=== PATIENT | female | born 1945 | race Caucasian/White ===

== ENCOUNTER 2017-11-27 18:09 | Emergency (ER) | payer MEDICARE, BC ==
[~2017-11-27] VITALS: Ht 160 cm; Wt 73.0 kg
[~2017-11-27 18:09] MED LIST: AMOXICILLIN875 MG OR; AUGMENTIN875TAB PO; CRESTOR10 MG PO; FLONASE NASAL50 MCG; MUCINEX600 MG PO; VITAMIN D400 UNI1 PO
[2017-11-27] MEDS ORDERED: MAGNESIUM400 M1 PO (18:23)
[2017-11-27 19:30] VITALS: BP 145/73
== END 2017-11-27 19:30 | disposition home or self-care (01) ==
LOC: ED 18:09
PROC: 0HQFXZZ Repair Right Hand Skin, External Approach (ICD-10-PCS; principal; 2017-11-27)
DX: S61.210A Laceration without foreign body of right index finger without damage to nail, initial encounter (principal); E78.5 Hyperlipidemia, unspecified; W45.8XXA Other foreign body or object entering through skin, initial encounter; Y93.G1 Activity, food preparation and clean up; Y92.000 Kitchen of unspecified non-institutional (private) residence as the place of occurrence of the external cause

== ENCOUNTER 2018-08-02 17:56 | Emergency (ER) | payer MEDICARE, BC ==
[~2018-08-02] VITALS: Ht 160 cm; Wt 68.0 kg
[~2018-08-02 17:56] MED LIST changes: +MAGNESIUM400 M1 PO
[2018-08-02 20:02] LABS: HEMATOCRIT 41.6 % (37.0-47.0); HEMOGLOBIN 13.2 g/dl (12.0-16.0); IMMATURE GRANULOCYTES 0.4 % (0.0-5.0); MEAN CELL VOLUME 90.6 fL CALC (80.0-100.0); MEAN CORPUSCULAR HGB 28.8 pG CALC (26.0-32.0); MEAN CORPUSCULAR HGB CONC 31.7 g/L CALC (32.0-36.0); NEUT# 9.31 thou/uL (2.00-7.15); RED BLOOD COUNT 4.59 mill/uL (4.20-5.60); RED CELL DISTRI WIDTH 13.1 % (11.5-15.5)
[2018-08-02 20:16] LABS: INFLUENZA A NONE DETECTED (NONE DETECT); INFLUENZA B NONE DETECTED (NONE DETECT)
[2018-08-02 20:17] LABS: ALBUMIN 4.3 g/dL (3.2-5.0); AMYLASE 54 u/l (30-110); ANION GAP 14 (6-22 (CALC)); BILIRUBIN, TOTAL 2.2 mg/dL (0.0-1.4); BUN 14 mg/dL (8-23); BUN/CREATININE RATIO 21 (12-20 (CALC)); CARBON DIOXIDE 26 mmol/l (22-30); CHLORIDE 104 mmol/l (95-108); CREATININE 0.7 mg/dL (0.5-1.0); GFR > 60 ML/MIN (>=60 (CALC)); GFR FOR AFR.AMER. > 60 ML/MIN (>=60 (CALC)); LIPASE 151 u/l (23-300); POTASSIUM 3.7 mmol/l (3.5-5.1); SODIUM 141 mmol/l (137-146); TOTAL PROTEIN 7.5 g/dL (6.3-8.2)
[2018-08-02 20:24] LABS: ALKALINE PHOSPHATASE 241 u/l (38-126); SGOT/AST 750 u/l (9-36)
[2018-08-02 22:53] LABS: URINE BILIRUBIN - DIPSTICK NEGATIVE (NEGATIVE); URINE BLOOD DIPSTICK NEGATIVE (NEGATIVE); URINE COLOR YELLOW; URINE GLUCOSE - DIPSTICK NEGATIVE (NEGATIVE); URINE KETONE 15 mg/dL (NEGATIVE); URINE LEUK ESTERASE NEGATIVE (NEGATIVE); URINE NITRITE - DIPSTICK NEGATIVE (Negative); URINE PROTEIN - DIPSTICK NEGATIVE (NEG-TRACE); URINE UROBILINOGEN - DIPSTICK 0.2 E.U./dL (0.2)
[2018-08-02 22:55] LABS: URINE CLARITY CLEAR
[2018-08-03 00:35] VITALS: BP 117/55
== END 2018-08-03 00:35 | disposition short-term general hospital (02) ==
LOC: ED 17:56
PROVIDERS: Emergency Medicine
DX: R19.7 Diarrhea, unspecified (principal); R10.9 Unspecified abdominal pain; R50.9 Fever, unspecified
CPT/HCPCS: Q9967; S0164

== ENCOUNTER 2018-08-11 09:11 | Emergency (ER) | payer MEDICARE, BC ==
[~2018-08-11] VITALS: Ht 160 cm; Wt 68.0 kg
[2018-08-11 09:58] LABS: URINE BILIRUBIN - DIPSTICK NEGATIVE (NEGATIVE); URINE BLOOD DIPSTICK TRACE-INTACT (NEGATIVE); URINE COLOR YELLOW; URINE GLUCOSE - DIPSTICK NEGATIVE (NEGATIVE); URINE KETONE NEGATIVE (NEGATIVE); URINE NITRITE - DIPSTICK NEGATIVE (Negative); URINE PROTEIN - DIPSTICK NEGATIVE (NEG-TRACE); URINE UROBILINOGEN - DIPSTICK 0.2 E.U./dL (0.2)
[2018-08-11 09:59] LABS: URINE CLARITY HAZY; URINE LEUK ESTERASE MODERATE (NEGATIVE)
[2018-08-11 10:07] LABS: URINE SQUAMOUS EPITHELIAL CELL MODERATE EPI/hpf (0-FEW)
[2018-08-11 10:21] LABS: HEMATOCRIT 41.8 % (37.0-47.0); HEMOGLOBIN 12.7 g/dl (12.0-16.0); IMMATURE GRANULOCYTES 0.5 % (0.0-5.0); MEAN CELL VOLUME 93.5 fL CALC (80.0-100.0); MEAN CORPUSCULAR HGB 28.4 pG CALC (26.0-32.0); MEAN CORPUSCULAR HGB CONC 30.4 g/L CALC (32.0-36.0); NEUT# 2.71 thou/uL (2.00-7.15); RED BLOOD COUNT 4.47 mill/uL (4.20-5.60); RED CELL DISTRI WIDTH 14.5 % (11.5-15.5)
[2018-08-11 10:31] LABS: ALKALINE PHOSPHATASE 132 u/l (38-126); BILIRUBIN, TOTAL 0.7 mg/dL (0.0-1.4); BUN 13 mg/dL (8-23); BUN/CREATININE RATIO 20 (12-20 (CALC)); CARBON DIOXIDE 31 mmol/l (22-30); CHLORIDE 109 mmol/l (95-108); CREATININE 0.7 mg/dL (0.5-1.0); GFR > 60 ML/MIN (>=60 (CALC)); GFR FOR AFR.AMER. > 60 ML/MIN (>=60 (CALC)); SODIUM 146 mmol/l (137-146); TOTAL PROTEIN 6.9 g/dL (6.3-8.2)
[2018-08-11 10:33] LABS: ANION GAP 12 (6-22 (CALC)); POTASSIUM 5.5 mmol/l (3.5-5.1); SGOT/AST 60 u/l (9-36)
[2018-08-11] MEDS ORDERED: CIPROFLOXACN500 MG PO (11:01)
[2018-08-11] MEDS ORDERED: METRONIDAZOL0.75 % VA (11:01)
[2018-08-11 11:03] VITALS: BP 130/77
[2018-08-11] MEDS ORDERED: PYRIDIUM200 MG PO (11:05)
== END 2018-08-11 11:12 | disposition home or self-care (01) ==
LOC: ED 09:11
PROVIDERS: Emergency Medicine
DX: B37.49 Other urogenital candidiasis (principal); B37.3 Candidiasis of vulva and vagina; E78.5 Hyperlipidemia, unspecified